=== PATIENT | male | born 1980 | race Caucasian/White ===

== ENCOUNTER → 2019-08-04 12:59 | Outpatient (CLI) | payer BC ==
--- NOTE | 2019-08-05 12:49 | EC ---
PATIENT:EVAN LESLIE DATE OF SERVICE: 08/04/19 SEX: M MEDICAL RECORD: [id number] DATE OF : [birth year] [facility] AGE OF PATIENT: 39 ADMISSION DATE: 08/04/19 REFERRING PHYSICIAN: INTERPRETING PHYSICIAN: YEISON ROWLAND MD ECHOCARDIOGRAM REPORT ECHO CHARGES 4 ECHO COMPLETE Date: 08/04/19 CLINICAL DIAGNOSIS: MITRAL REGURG, HX OF AVR ECHOCARDIOGRAPHIC MEASUREMENTS (adult normal given) AC root (d.<3.7cm) 2.7 cm LV Septum d (<1.2 cm> 1.0 cm Valve Excursion 1.2 cm LV Septum (systole) 1.4 cm Left Atria (s.<4.0cm> 3.6 cm LVPW d(<1.2cm) 1.4 cm RV (d.<2.3cm) 3.1 cm LVPW (sytole) 1.8 cm LV diastole(<5.6CM) 4.9 cm MV E-F(>70mm/sec) cm LV systole 2.9 cm LVOT Diameter 1.7 cm MV exc.(>10mm) 1.6 cm Est.ejection fraction (50-75%) % DOPPLER: LVIT cm/sec A 77.0 cm/sec E 91.0 cm/sec LA cm/sec RVSP 23 mmHg LVOT 186 cm/sec AOP1/2T m/s Asc. Ao 263 cm/sec RVOT 78 cm/sec RA cm/sec PA 176 cm/sec AV Gradient Peak 27.77mmHg AV Mean 15.80mmHg AV Area 1.8 cm MV Gradient Peak 3.05 mmHg MV Mean 1.26 mmHg MV Area cm COMMENTS: Student Education Specialist: Irma CONSTANTINO Silk Examiner: 1 Dr. Rowland TAPE# PACS Pericardial Effusion N DATE OF SERVICE: 08/04/2019 FINDINGS: 1. Left ventricular chamber size is within normal limits. Left ventricular systolic function is normal at 60% to 65%. 2. Left atrium, right atrium, and right ventricle chamber sizes are within normal limits. 3. Valvular structure - aortic valve is replaced with a tissue prosthesis with normal structure and function and position. The remaining valvular structures have normal structure and motion. ECHOCARDIOGRAM REPORT [id number] EVAN LESLIE 4. Doppler interrogation reveals trace mitral regurgitation, [id number] tricuspid regurgitation, no other valvular insufficiency or stenosis. Pulmonary systolic pressure is estimated at 23 mmHg. 5. No evidence of pericardial effusion or left ventricular thrombus. TRANSINT:[id number] Voice Confirmation ID: [id number] DOCUMENT ID: [id number] YEISON ROWLAND MD at 1249 CC: [id number] DICTATION DATE: 08/04/19 15[address] ATTENDANT: 08/04/19 2152 DEP CLI 08/04/19 [place] [id number] [place] [id number]
== END | disposition home or self-care (01) ==
LOC: D.HCCECHO 12:59
PROVIDERS: ATTEND Internal Medicine Interventional Cardiology
DX: I34.0 Nonrheumatic mitral (valve) insufficiency (principal)